=== PATIENT | female | born 1995 | race Caucasian/White ===

== ENCOUNTER 2025-06-24 16:14 | Emergency (ER) | payer OTHER, SELFPAY ==
[2025-06-24 16:23] VITALS: BP 142/84; PULSE 71; RESP 18; TEMP 36.6; O2SAT 99; BMI 22.0
--- NOTE | 2025-06-24 16:29 | ED.GENADULT ---
HPI - General Adult General Chief complaint: Psychiatric Symptoms Stated complaint: [place] Time Seen by Provider: 06/24/25 19:38 Source: patient, RN notes reviewed and old records reviewed Mode of arrival: ambulatory Limitations: no limitations History of Present Illness ED Provider: Angela KATZ narrative: 30 year old female presents for evaluation of depression with suicidal thoughts. The patient reports that she has had depressive thoughts for the last couple of weeks. She reports last these thoughts intensified pain She reports that this has a do with the next boyfriend. She does not have a plan to harm herself but is having some thoughts. This happened 1 time in the past a few years ago and she was seen at [facility]. She ultimately benefit from seeing a therapist. She does not currently have a therapist She is not on any medications for anxiety and depression. She reports that she had previously been on Zoloft but did not feel it would benefit her at all. She has no somatic complaints Related Data Home Medications ?Medication ?Instructions ?Recorded ?Confirmed levonorgestrel-ethinyl estradiol 1 tab PO DAILY 06/24/25 06/24/25 0.1 mg-20 mcg tablet (Vienva) Previous Rx's ?Medication ?Instructions ?Recorded hydroxyzine HCl 25 mg tablet 25 mg PO TID PRN anxiety #20 tabs 06/24/25 Allergies Allergy/AdvReac Type Severity Reaction Status Date / Time No Known Allergies (No Known Allergy Verified 06/24/25 16:24 Allergies*) Review of Systems Constitutional: Constitutional: Denies body ache(s), Denies chills, Denies fever(s) and Denies headache(s) Eyes: Eyes: Denies blurry vision ENT: Denies vertigo, Denies dizziness and Denies headache(s) Cardiovascular: Cardiovascular: Denies chest pain Gastrointestinal: Gastrointestinal: Denies abdominal pain Integumentary/Breasts: Skin/Breast: Denies rash Neurologic: Denies vertigo, Denies dizziness and Denies headache(s) Psychiatric: Psychiatric: Reports anxiety, Reports depression, Denies homicidal ideation and Reports suicidal ideation PMFSH Social History Social History Alcohol intake: current Smoked in Last 30 Days: No Use of substances other than those prescribed or required for medical reasons: No Advance Directives: No Advance Directives Information Provided: No Do you have a plan to hurt others: No Plan Patient : No Physical Exam ED Vital Signs: Vital Signs - 24 hr 06/24/25 16:23 06/24/25 20:07 Temperature 98 F 98 F Pulse Rate 71 71 Respiratory Rate 18 18 Blood Pressure 142/84 H 142/84 H Pulse Oximetry 99 99 Oxygen Delivery Method Room Air Room Air BMI result Body Mass Index 22.0 Const General: healthy appearing, comfortable, no acute distress, alert and awake Nutritional Appearance: well nourished Orientation/consciousness: patient oriented x3 HENMT Head: Yes normocephalic and Yes atraumatic Eyes Eyelids: Yes eyelids normal Conjunctivae: conjunctivae normal Sclerae: sclerae normal Corneas: corneas normal Pupils: Equal, round and reactive pupils present EOM: EOMs intact bilaterally Neck Neck: Yes full ROM Resp Effort & Inspection: normal respiratory effort, able to speak in complete sentences and not labored Cardio Rate: regular rate Rhythm: regular rhythm Skin General skin exam: no rashes or lesions noted and elasticity normal Neuro General: patient oriented x3 Cranial nerves: Yes CN's II-XII intact bilaterally, Yes Equal, round and reactive pupils present and Yes Bilaterally intact EOM present Cognition (Neuro): normal cognition Extrem Other: Moving all extremities well without any obvious deformities Course Course Course Narrative: RME: 30 year female presents to ED for depression and suicidal ideation. Patient has no plan but last attempt to hurt herself for several years ago. Reevaluation(s) Reevaluation #1: The patient is seen with the care team and ultimately cleared for discharge for partial hospitalization. The patient is comfortable with this plan Time: 20:40 Medical Decision Making Medical Decision Making MDM Narrative: 30-year-old female presents for evaluation of depression with suicidal ideation. The patient does not have a plan to harm herself. She denies any somatic complaints, she is quite well appearing. She reports that she is not currently on any medications for anxiety or depression. The patient will be evaluated by the care team and she is currently medically cleared Differential Diagnosis Differential Diagnoses: The differential diagnosis associated with the presentation includes Depression Suicidal ideation Mood disorder Substance abuse Lab Data 06/24/25 16:58 06/24/25 16:58 Labs: Lab Results 06/24/25 06/24/25 Range/Units 16:44 16:58 WBC 6.8 (4.8-10.8) X10*3/uL RBC 3.84 L (4.20-5.50) X10*6/uL Hgb 12.5 (12.0-16.0) g/dl Hct 37.3 (37.0-47.0) % MCV 97.1 (80.0-98.0) fL MCH 32.6 (27.0-33.0) pg MCHC 33.5 (31.0-35.0) g/dl RDW 12.2 (11.0-16.0) % Plt Count 306 (160-400) X10*3/uL MPV 9.5 (9.4-12.3) fL Immature Gran % (Auto) 0.1 (0.0-0.4) % Neut % (Auto) 53.4 (45-73) % Lymph % (Auto) 34.1 (20-40) % [place] % (Auto) 7.8 (2-11) % Eos % (Auto) 4.0 (0-4) % Baso % (Auto) 0.6 (0-2) % Lymph # (Auto) 2.3 (1.2-4.9) X10*3/uL [place] # (Auto) 0.5 (0.1-1.2) X10*3/uL Eos # (Auto) 0.3 (0.0-0.4) X10*3/uL Baso # (Auto) 0.0 (0.0-0.2) X10*3/uL Abs Immat Gran (auto) 0.01 (0.00-0.03) X10*3/uL Absolute Neuts (auto) 3.7 (2.0-8.3) x10*3/uL Absolute Nucleated RBC 0.000 (0.0-0.012) X10*3/uL Nucleated RBC % (auto) 0.0 (0.0-0.2) /100WBC Sodium 142 (135-145) mmol/L Potassium 3.6 (3.3-5.1) mmol/L Chloride 106 (96-108) mmol/L Carbon Dioxide 25 (22-29) mmol/L Anion Gap 15 (12-20) BUN 13 (9-16) mg/dL Creatinine 0.67 (0.5-1.4) mg/dL Estim Creat Clear Calc 123.8 Estimated GFR > 60 Random Glucose 86 (60-115) mg/dL Calcium 9.2 (8.4-10.2) mg/dL Total Bilirubin 0.4 (0.0-1.0) mg/dL AST 23 (5-31) U/L ALT 27 (0-31) U/L Alkaline Phosphatase 49 (39-117) U/L Total Protein 7.2 (6.5-8.0) g/dL Albumin 4.7 (3.5-5.0) g/dL Beta HCG, Quant < 2 mIU/mL Urine Color Yellow Urine Appearance Clear Urine pH 7.0 (5.0-9.0) Ur Specific [place] 1.020 (1.005-1.025) Urine Protein Negative (Neg-Trace) mg/dL Urine Glucose (UA) Negative (Negative) mg/dL Urine Ketones Negative (Negative) mg/dL Urine Blood Moderate (2+) H (Negative) Urine Nitrite Negative (Negative) Ur Leukocyte Esterase Negative (Negative) Urine RBC 6-10 H (0-2) /HPF Urine WBC 0-5 (0-5) /HPF Ur Squamous Epith Cells 0-2 (0-2) /HPF Urine Bacteria None Seen (None Seen) Hyaline Casts 0-2 (0-2) /LPF Urine Opiates Screen Not Detected (Not Detect) Ur Buprenorphine Scrn Not Detected (Not Detect) ng/mL Ur Oxycodone Screen Not Detected (Not Detect) ng/mL Urine Methadone Screen Not Detected (Not Detect) ng/mL Urine Fentanyl Screen Not Detected (Not Detect) Ur Barbiturates Screen Not Detected (Not Detect) Ur Phencyclidine Scrn Not Detected (Not Detect) Ur Amphetamines Screen Not Detected (Not Detect) U Benzodiazepines Scrn Not Detected (Not Detect) Urine Cocaine Screen Not Detected (Not Detect) U Marijuana (THC) Screen Not Detected (Not Detect) Ethyl Alcohol < 10 mg/dL Discharge Plan Discharge Clinical Impression: Depression Patient Disposition: Home, Self-Care Instructions: Depression (ED) Additional Instructions: Your medical workup today was reassuring. You were seen by a care team clinician and we felt it was appropriate for partial hospitalization to treat your anxiety and depression. We should be able to get you established with a therapist You may use hydroxyzine as needed for anxiety. This may make you drowsy, do not drink alcohol or drive after taking it. If you are having worsening thoughts or plan to harm herself return to the emergency department or call 911 immediately You were seen in our Emergency Department today for treatment of a behavioral health issue. It is important after your visit that you follow up with either your behavioral health provider or a primary care doctor within 7 days.? If you have trouble finding a therapist you can reach out to [place] [phone] [facility] [place] [facility] can be reached 7 days a week 24 hours a day.? Call [phone] to speak with someone.? Return for any worsening symptoms or concerns such as thoughts of self harm or harm to others. Please call 911 if you feel your mental health is worsening.? Prescriptions: New hydroxyzine HCl 25 mg tablet 25 mg PO TID PRN (Reason: anxiety) Qty: 20 0RF No Action levonorgestrel-ethinyl estrad [Vienva] 0.1-20 mg-mcg tablet 1 tab PO DAILY Interventions: [place]-Suicide Risk Severity Scale Last Done: 06/24/25 16:46 ED Discharge Assessment Last Done: 06/24/25 20:07 Discharge Date/Time: 06/24/25 20:29 Print Language: Mongolian
--- NOTE | 2025-06-24 16:48 | PC.NURSE ---
Funmi presents to the ED today reporting suicidal ideation secondary to a recent breakup. she reports that she has been having increasing depression and anxiety and the anxiety was so severe this am that she passed out. She denies headstrike when passing out. Pt is calm and cooperative at this time, help seeking. Denies being on any psychiatric medications. Pt reports she has been trying to get in to see a therapist but has not been successful thus far
[2025-06-24 17:06] LABS: Appearance Urine Clear; Glucose Urine UA Negative (Negative); PH 7.0 (5.0-9.0); Specific Gravity - Urine 1.020 (1.005-1.025); UMIC TRIGGER UACC YES
[2025-06-24 17:07] LABS: MANUAL DIFF FLAG NO
[2025-06-24 17:13] LABS: Hematocrit 37.3 % (37.0-47.0); Hemoglobin 12.5 g/dl (12.0-16.0); Imm Gran Abs Auto 0.01 X10*3/uL (0.00-0.03); Imm Gran Pct Auto 0.1 % (0.0-0.4); Lymphocytes Absolute Auto 2.3 X10*3/uL (1.2-4.9); Mean Corpuscular HGB Conc 33.5 g/dl (31.0-35.0); Mean Corpuscular Hemoglobin 32.6 pg (27.0-33.0); Mean Corpuscular Volume 97.1 fL (80.0-98.0); NRBC Abs Auto 0.000 X10*3/uL (0.0-0.012); NRBC Pct Auto 0.0 /100WBC (0.0-0.2); Platelet Count 306 X10*3/uL (160-400); Red Blood Count 3.84 X10*6/uL (4.20-5.50); White Blood Count 6.8 X10*3/uL (4.8-10.8)
[2025-06-24 17:16] LABS: Cannabinoid Screen Urine Not Detected (Not Detect)
[2025-06-24 17:45] LABS: Alanine Aminotransferase 27 U/L (0-31); Albumin Level 4.7 g/dL (3.5-5.0); Alkaline Phosphatase 49 U/L (39-117); Anion Gap 15 (12-20); Aspartate Amino Transferase 23 U/L (5-31); Blood Urea Nitrogen 13 mg/dL (9-16); Calcium 9.2 mg/dL (8.4-10.2); Carbon Dioxide 25 mmol/L (22-29); Chloride 106 mmol/L (96-108); Creatinine Clr Calc Pharmacy 123.8; Estimated Glomerular Filt Rate > 60; Potassium 3.6 mmol/L (3.3-5.1); Sodium 142 mmol/L (135-145); Total Protein 7.2 g/dL (6.5-8.0)
--- OUTSIDE RECORDS SUMMARY | 2025-06-24 19:03 | XMS_ITS | Encounter Summary ---
Author Organization [facility] Address [address] [place] [address] Care Team Providers Care Director Pharmacovigilance Name Role Phone Bev Tang MD Primary Care Provider Encounter Details Date Type Department Care Team ([facility] Contact Info) Description 04/26/2025 Results Follow-Up Adult Medicine - [place] [address] [place] [address] Shukri Prieto, [address] [place] [address] Social History Tobacco Use Types Packs/Day Years Used Date Smoking Tobacco: Never Smokeless Tobacco: Never Alcohol Use Standard Drinks/Week Comments Yes 0 (1 standard drink = 0.6 oz pur e alcohol) Housing Instability Answer Date Recorde d Are you worried that in the next 2 months you may not have stable housing? No 04/29/2025 Food Access & Nutrition Answer Date Rec orded Do you have access to a vari ety of food including fruits and vegetables? Yes 04/29/2025 Access to Healthcare Answer Date Record ed Within the last 3 months, ho w many times did you visit the emergency department for your medical care? 0 04/29/2025 Health Literacy Answer Date Recorded How often do you need to hav e someone help you when you read instructions, pamphlets, or other written material from your doctor or pharmacy? Never 04/29/2025 Caregiver: How often do you need to have someone help you when you read instructions, pamphlets, or other written material from your doctor or pharmacy? Not on file 04/29/2025 Financial Risk Answer Date Recorded How hard is it for you to pa y for the very basics like food, housing, medical care, and air conditioning / heating? Not very hard 04/29/2025 Transportation Answer Date Recorded Has the lack of transportati on kept you from meetings, work, or from getting things needed for daily living? No Has the lack of transportati on kept you from medical appointments or from getting medications? No 04/29/2025 Social Isolation Answer Date Recorded How often do you feel lonely or isolated from th ose around you? Rarely 04/29/2025 Food Risk Answer Date Recorded Within the past 12 months we worried whether our food would run out before we got money to buy more. Never true 04/29/2025 Within the past 12 months th e food we bought just didn't last and we didn't have money to get more. Never true 04/29/2025 Dependent Care Answer Date Recorded Do you need help finding or paying for care for your loved ones. For example, child care director or elderly care for an older adult? No 04/29/2025 Education Answer Date Recorded Do you think completing more education or training, like finishing a GED, going to college, or learning a trade, would be helpful for you? Yes 04/29/2025 Employment and Income Answer Date Recor ded During the last four weeks, have you been actively looking for work? No 04/29/2025 Living Situation Answer Date Recorded What is your living situation? Unrecognized valu e 04/29/2025 Comments Unknown Sex and Gender Information Value Date Recorded Sex Assigned at Not on file Legal Sex Female 10:29 AM EDT Gender Identity Not on file Sexual Orientation Not on file documented as of this encounter Plan of Treatment Not on file documented as of this encounter Visit Diagnoses Not on filedocumented in this encounter Care Teams Director Pharmacovigilance Relationship Specialty Start Date End Date Bev Tang MD [address] [place] [id number] PCP - General Internal Medicine 12/06/24 documented as of this encounter
--- OUTSIDE RECORDS SUMMARY | 2025-06-24 19:03 | XMS_ITS ---
Author Name [facility] Organization Unknown Care Team Organization Name Specialty Phone Email Start Date End Da te [facility] Termed, PROVIDER Primary Care 05/11/202202/01
--- OUTSIDE RECORDS SUMMARY | 2025-06-24 19:03 | XMS_ITS | Encounter Summary ---
Author Organization [facility] Address [address] [place] [address] Care Team Providers [employer] Division Chair Name Role Phone Bev Tang MD Primary Care Provider Encounter Details Date Type Department Care Team ([facility] Contact Info) Description 05/17/2025 Results Follow-Up Adult [address] [id number] Wily Lima, RN Social History Tobacco Use Types Packs/Day Years [...] care for your loved ones. For example, early childhood education coordinator or elderly care for an older adult? [...] Diagnoses Not on filedocumented in this encounter Additional Health Concerns Assessment Noted Time PHQ-9 Depression Total Score: 6 04/29/20 7:15 AM EDT documented as of this encounter [employer] Division Chair Relationship Specialty Start Date End Date Bev Tang MD [address] [place] [id number] PCP - General Internal Medicine 12/06/24 documented as of this encounter
--- OUTSIDE RECORDS SUMMARY | 2025-06-24 19:03 | XMS_ITS | Clinical Summary ---
Author Organization Patient Business Ser [facility] [place] Address [address] [place] [address] Care Team Providers Care Yacht Master Name Role Phone Bev Tang MD Primary Care Provider Allergies Active Allergy Reactions Criticality Noted Date Comments Other 03/02/2017 Seasonal Pollen Medications albuterol HFA (PROAIR HFA ; PROVENTIL HFA ; VENTOLIN HFA) 90 mcg/actuation inhaler Inhale 2 Puffs into the lungs 4 times daily as needed for Cough or Wheezing. 07/26/2023 Active levonorgestrel-e thinyl estradiol (Vienva) 0.1-20 mg-mcg per tablet Take 1 tablet by mouth 1 (one) time each day. 84 tablet 3 12/06/2024 Active acetaminophen (TYLENOL) 325 mg tablet Take by mouth every 6 (six) hours if needed for mild pain. 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 Found on ultrasound 09/19/2023 Anxiety 05/24/2018 LGSIL on Pap smear of cervix 03/02/2017 Overview (07/25/2024): Colpo- benign 04/2017 - repeat pap 2018 03/15/2018 - PAP collected Asthma 02/27/2014 Overview (07/25/2024): Exercise induced Encounters Date Type Department Care Team Description 05/17/2025 Results Follow-Up Adult [address] [phone] Wily Lima RN 05/15/2025 Results Follow-Up [address] [phone] Shukri Prieto PA 05/13/2025 8:02 AM EST - 05/13/2025 11:59 PM EST Hospital Encounter Radiology Department - [address] [phone] Thyroid nodule Discharge Disposition: Home or Self Care 05/03/2025 Results Follow-Up [address] [phone] Shukri Prieto PA 05/02/2025 3:30 PM EDT - 05/02/2025 11:59 PM EDT Hospital Encounter Ultrasound - [facility] [address] [place] [address] Reagan's disease Discharge Disposition: Home or Self Care 05/01/2025 2:48 PM EDT - 05/01/2025 11:59 PM EDT Hospital Encounter CT Scan - [address] [phone] Pelvic pain; Abdominal pain of multiple sites Discharge Disposition: Home or Self Care 04/29/2025 7:30 AM EDT Office Visit Adult [address] [phone] Shukri Prieto PA Pelvic pain (Primary Dx); Abdominal pain of multiple sites; Reagan's disease; Sciatica of left side 04/26/2025 11:04 AM EDT - 04/26/2025 11:59 PM EDT Hospital Encounter Radiology Department - [address] [phone] Pelvic pain Discharge Disposition: Home or Self Care 04/26/2025 Results Follow-Up Adult [address] [phone] Shukri Prieto PA 04/24/2025 7:40 AM EDT - 04/24/2025 11:59 PM EDT Hospital Encounter Radiology Department - [address] [phone] Abdominal pain of multiple sites; Hx of simple renal cyst Discharge Disposition: Home or Self Care 04/23/2025 Results Follow-Up Adult [address] [phone] Shukri Prieto PA 04/22/2025 7:30 AM EDT Office Visit [address] [phone] Shukri Prieto PA Abdominal pain of multiple sites (Primary Dx); Other fatigue; Dizziness; Reagan's disease; Hx of simple renal cyst; Flu vaccine need 04/15/2025 Telephone Adult [address] [phone] Bev Tang MD from Last 3 Months Immunizations Immunization Administration Dates Next Due DTP 1995,1995,1995 DTaP (Infanrix) 6wks to less than 7yo 11/18/2000 ,10/01/1996 [id number] (Pentacel) 2mo to less than 5yo 11/18/2000,10/01/1996,1995,10/17,1995 HPV, Quadrivalent 02/02/2011,09/11/2010,07/14/19 11 Hepatitis B Pediatric (Enger ix B; Recombivax HB) to less than 20 yo 03/23/1996,1995,1995 Hib (HbOC) 11/18/2000, 7,1995,10/17,1995 IPV Inactivated polio (Ipol) 6wks and older 11/18/2000,1995,1995,08/22 Influenza Quadravalent, MDCK , 0.5ml, preservative free (Flucelvax) 6mo and older 07/26/2023,03/06/2019,05/24/2018 Influenza Quadrivalent, 0.5m l, preservative free (Fluarix; FluLaval; Fluzone) ages 6mo and older (Afluria) 3yo and older 08/19/2021 Influenza trivalent, 0.5mL, preservative free (Fluarix; FluLaval; Fluzone) ages 6mo and older (Afluria) 3 years and older 09/14/2013 Influenza trivalent, MDCK, 0 .5mL, preservative free (Flucelvax) 6mo and older 04/22/2025 Influenza trivalent, with pr eservative (Fluzone; Afluria) 6mo and older 09/14/2013 MMR, measles mumps and rubel la Live (Priorix; M-M-R II) 12mo and older 11/18/2000,06/22/1996 Meningococcal Polysaccharide 08/24/2011,01/14/20 07 Pneumococcal polysaccharide 23 valent (Pneumovax 23) 2yo and older 11/18/2014 Td Tetanus diptheria (Tdvax) 7yo and older 05/24/2018 Tdap Tetanus diptheria acell ular pertussis (Boostrix; Adacel) 7yo and older 01/13/2007 Varicella live (Varivax) 12m o and older 02/02/2008,09/08/1998 Surgical History Surgery Date Site/Laterality Comments WISDOM TOOTH EXTRACTION 2013 PROCEDURE: HISTORICAL WISDOM TEETH EXTRACTION Medical History Medical History Date Comments Asthma 02/27/2014 DX:Asthma Renal cyst, right 09/19/2023 DX:Renal cyst, right; COMMENT: Septated. 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 Family History Medical History Relation Name Comments No Known Problems Brother Hypertension Father Other: hyperlipidemia Father Other: parkinsons Maternal Grandfather di ed 81 Dementia Maternal Grandmother Other: alive and well Mother Other: esophageal cancer Paternal Grandfather 75 Other: stomach cancer Paternal Grandfather Stomach cancer Paternal Grandmother No Known Problems Sister Breast cancer Neg Hx Colon cancer Neg Hx Ovarian cancer Neg Hx Pancreatic cancer Neg Hx Prostate cancer Neg Hx Uterine cancer Neg Hx Relation Name Status Comments Brother Alive Father Alive Maternal Grandfather Maternal Grandmother Mother Alive Paternal Grandfather Paternal Grandmother Sister Alive Social History Tobacco Use Types Packs/Day Years [...] for your loved ones. For example, child nurse or elderly care for an older adult? [...] on file Sexual Orientation Not on file Last Filed Vital Signs Vital Sign Reading Time Taken Comments Blood Pressure 114/70 04/29/2025 7:29 AM EDT Pulse 63 04/29/2025 7:29 AM EDT Temperature 36.4 C (97.6 F) 04/29/2025 7:29 AM EDT Respiratory Rate - - Oxygen Saturation - - Inhaled Oxygen Concentration - - Weight 68 kg (150 lb) 04/29/2025 7:29 AM EDT Height 172.7 cm (5' 8 ) 04/29/2025 7:29 AM EDT Body Mass Index 22.81 04/29/2025 7:29 AM EDT Plan of Treatment Health Maintenance Due Date Last Done Comments Pneumococcal Vaccine: Pediatrics (0 to 5 Years) and At-Risk Patients (6 to 49 Years) (2 of 2 - PCV) 11/19/2015 11/18/2014 COVID-19 Vaccine (3 - season) 2025 08/19/2021, 10/13/2020 Social Influencers of Health Screening 04/29/2026 04/29/2025 DTaP,Tdap,and Td Vaccines (8 - Td or Tdap) 05/24/2028 05/24/2018, 01/13/2007, 11/18/2000, Additional history exists Cervical Cancer Screening: HPV 07/08/2028 07/08/2023 Cholesterol Screening (Lipid Panel) 07/26/2028 07/26/2023 RSV Immunization Adult Patients (1 - 1-dose 75+ series) 2070 Hepatitis B Vaccines Completed 03/23/1996, 1995, 1995 HIB Vaccines Completed 11/18/2000, 11/01, 10/01/1996, Additional history exists IPV Vaccines Completed 11/18/2000, 11/01, 10/01/1996, Additional history exists MMR Vaccines Completed 11/18/2000, 06/22/1996 Varicella Vaccines Completed 02/02/2008, 09/08/1998 HPV Vaccines Completed 02/02/2011, 09/01, 07/14/2010 Meningococcal ACWY Vaccine Aged Out 08/24/2011, No longer eligible based on patient's age to complete this topic HIV Screening Completed 12/06/2024, 12/09/2014 Hepatitis C Screening Completed 12/06/2024 Influenza Vaccine Completed 04/22/2025, , 08/19/2021, Additional history exists Depression Screening Completed 04/29/2025 Hepatitis A Vaccines Aged Out No long er eligible based on patient's age to complete this topic Meningococcal B Vaccine Aged Out No l onger eligible based on patient's age to complete this topic RSV Immunization Patients Under 20 months Aged Out No longer eligible based on patient's age to complete this topic Procedures Procedure Name Priority Date/Time Associated Diagnosis Comments US GUIDED FINE NDL ASP 1ST LESION Routine 05/13/2025 8:37 AM EST Thyroid nodule FINE NEEDLE ASPIRATION Routine 8:37 AM EST Thyroid nodule US HEAD NECK SOFT TISSUE Routine 05/02/2025 3:51 PM EDT Reagan's disease CT ABDOMEN PELVIS WO CONTRAST Routine 05/01/2025 2:57 PM EDT Pelvic pain Abdominal pain of multiple sites ECG 12-LEAD Routine 04/30/2025 10:04 AM EDT US DUPLEX ABDOMEN/PELVIS/RETRO COMPLETE STAT 04/26/2025 11:28 AM EDT Pelvic pain US PELVIS NON OB COMPLETE W TRANSVAGINAL STAT 04/26/2025 11:28 AM EDT Pelvic pain US ABDOMEN COMPLETE Routine 04/24/2025 8 :05 AM EDT Abdominal pain of multiple sites Hx of simple renal cyst CBC WITH AUTO DIFFERENTIAL Routine 04/22/2025 8:37 AM EDT Other fatigue COMPREHENSIVE METABOLIC PANEL Routine 04/22/2025 8:37 AM EDT Other fatigue THYROID PEROXIDASE AND THYROGLOBULIN ANTIBODIES Routine 04/22/2025 8:37 AM EDT Other fatigue Reagan's disease VITAMIN D 25 HYDROXY Routine 04/22/2025 8:37 AM EDT Other fatigue FERRITIN Routine 04/22/2025 8:37 AM EDT Other fatigue THYROID STIMULATING HORMONE WITH REFLEX TO FREE T4 AND FREE T3 Routine 04/22/2025 8:37 AM EDT Other fatigue Reagan's disease CBC AND DIFFERENTIAL Routine 04/22/2025 8:37 AM EDT Other fatigue EXTERNAL CLINICAL LAB 04/16/2025 HEPATITIS C ANTIBODY Routine 12/06/2024 2:30 PM EDT Encounter for screening for viral disease HIV 1, 2 ANTIBODY, P24 ANTIGEN WITH REFLEX TO DIFFERENTIATION Routine 12/06/2024 2:30 PM EDT Encounter for screening for viral disease LIPID PANEL Routine 07/26/2023 HM HPV Routine 07/08/2023 from Last 3 Months or Most Recently Relevant to Health Maintenance Results * US Guided Fine Ndl Asp 1st Lesion (05/13/2025 8:37 AM EST) Anatomical Region Laterality Modality Ultrasound 05/13/2025 8:44 AM EST Addenda Addendum by Anuja Yang MD on 05/17/2025 11:07 AM EST Addendum: Final Diagnosis Thyroid, left isthmus, fine needle aspiration (ThinPrep, direct smears): Benign ([place] Category II) Consistent with follicular nodular disease (includes adenomatoid nodule, colloid nodule, etc.) -------- ADDENDUM -------- Dictated By: Anuja Yang Dictated Date: 05/17/2025 11:06 ET Assigned Physician: Anuja Yang Reviewed and Electronically Signed By: Anuja Yang Signed Date: 05/17/2025 11:07 ET Workstation ID: [id number] Transcribed By: Self Edit Transcribed Date: 05/17/2025 11:06 ET Impressions 05/13/2025 8:46 AM EST Seemingly successful ultrasound-guided fine-needle aspiration of a left isthmus thyroid nodule. Pathologic analysis is pending. POS - [id number] -------- FINAL REPORT -------- Dictated By: Anuja Yang Dictated Date: 05/13/2025 08:44 ET Assigned Physician: Anuja Yang Reviewed and Electronically Signed By: Anuja Yang Signed Date: 05/13/2025 08:46 ET Workstation ID: [id number] Transcribed By: Self Edit Transcribed Date: 05/13/2025 08:44 ET Narrative 05/13/2025 8:46 AM EST EXAM: Ultrasound-guided fine-needle aspiration of a thyroid nodule. FINDINGS: Patient presents for ultrasound-guided fine-needle aspiration of a 1.7 x 1.2 x 0.6 cm nodule in the left isthmus. Prior imaging from 05/02/2025 was reviewed. Risks and benefits of the procedure including specific risks of hemorrhage and infection were discussed with the patient before beginning the procedure. Written and verbal consent to proceed were given. The overlying skin was prepped with betadine and anesthetized with 1% buffered lidocaine. Using ultrasound guidance, 3 passes were made into the nodule using 25-gauge spinal needles. ThinPrep slides were prepared. No immediate complications. No postprocedural hematoma. Procedure Note Anuja Yang MD - 05/13/2025 EXAM: Ultrasound-guided fine-needle aspiration of a thyroid nodule. FINDINGS: Patient presents for ultrasound-guided fine-needle aspiration of a 1.7 x1.2 x 0.6 cm nodule in the left isthmus. Prior imaging from 05/02/2025was reviewed. Risks and benefits of the procedure including specificrisks of hemorrhage and infection were discussed with the patient beforebeginning the procedure. Written and verbal consent to proceed weregiven. The overlying skin was prepped with betadine and anesthetized with 1%buffered lidocaine. Using ultrasound guidance, 3 passes were made into thenodule using 25-gauge spinal needles. ThinPrep slides were prepared. Noimmediate complications. No postprocedural hematoma. IMPRESSION: Seemingly successful ultrasound-guided fine-needle aspiration of a leftisthmus thyroid nodule. Pathologic analysis is pending. POS - [id number] -------- FINAL REPORT -------- Dictated By: Anuja Yang Dictated Date: 05/13/2025 08:44 ET Assigned Physician: Anuja Yang Reviewed and Electronically Signed By: Anuja Yang Signed Date: 05/13/2025 08:46 ET Workstation ID: [id number] Transcribed By: Self Edit Transcribed Date: 05/13/2025 08:44 ET us Shukri NELSON IMG US PROCEDURES Edited Resu lt - Final * Fine needle aspiration (05/13/2025 8:37 AM EST) Final Diagnosis Thyroid, left isthmus, fine needle aspiration (ThinPrep, direct smears): Benign ([place] Category II) Consistent with follicular nodular disease (includes adenomatoid nodule, colloid nodule, etc.) 05/15/2025 9:10 AM EST [facility] at 0910 EST Specimen A Adequacy Satisfactory for evaluation 05/15/2025 9:10 AM EST [facility] Gross Description A. Thyroid, lt thyroid isthmus: Received in Cytolyt is 30 ml of clear fluid. One ThinPrep, three alcohol fixed smear, and three air dried smear are made. rp 05/15/2025 9:[address] [facility] Disclaimer Unless otherwise specified, all tissue is 10% NB formalin fixed and paraffin embedded. Technical cytopathology services provided by [facility], at [address] [place] [address] ([facility] # [id number]/Floridalma Phillips MD, Application Trainer.) 05/15/2025 9:10 AM EST [facility] Fine Needle Aspirate Thyroid structure / Unknown 05/13/2025 8:37 AM EST 05/14/2025 9:00 AM EST us Anuja Yang MD LAB PATHOLOGY ORDERABLES Final R esult [facility] [address] [place] [address], [place] [phone] * US Head Neck Soft Tissue (05/02/2025 3:51 PM EDT) Anatomical Region Laterality Modality Head and Neck Ultrasound 05/02/2025 4:14 PM EDT Impressions 05/02/2025 4:20 PM EDT 1. Heterogeneous thyroid gland with increased vascularity. 2. Left isthmus nodule new from prior, consider FNA if clinically indicated. -------- FINAL REPORT -------- Dictated By: Diomedes Mendez Dictated Date: 05/02/2025 16:14 ET Assigned Physician: Diomedes Mendez Reviewed and Electronically Signed By: Diomedes Mendez Signed Date: 05/02/2025 16:20 ET Workstation ID: [id number] Transcribed By: Self Edit Transcribed Date: 05/02/2025 16:14 ET Narrative 05/02/2025 4:20 PM EDT Exam: Thyroid ultrasound. HISTORY: Reagan thyroiditis COMPARISON: Ultrasound thyroid from 10/19/2023 Technique: Grayscale and Doppler images of the thyroid gland were obtained. FINDINGS: The thyroid gland is normal in size. The right lobe measures 5.4 x 1.7 x 2.1 cm. The left lobe measures 5.7 x 1.4 x 2.0 cm. The thyroid isthmus is prominent in size and measures 0.6 cm. The thyroid parenchyma is heterogenous. Increased vascularity is present. Left isthmus: Hypoechoic ovoid solid nodule measures 1.7 x 0.6 x 1.2 cm with increased vascularity Procedure Note Diomedes Mendez MD - 05/02/2025 Exam: Thyroid ultrasound. HISTORY: Reagan thyroiditis COMPARISON: Ultrasound thyroid from 10/19/2023 Technique: Grayscale and Doppler images of the thyroid gland wereobtained. FINDINGS: The thyroid gland is normal in size. The right lobe measures 5.4 x 1.7 x2.1 cm. The left lobe measures 5.7 x 1.4 x 2.0 cm. The thyroid isthmus isprominent in size and measures 0.6 cm. The thyroid parenchyma isheterogenous. Increased vascularity is present. Left isthmus: Hypoechoic ovoid solid nodule measures 1.7 x 0.6 x 1.2 cm with increasedvascularity IMPRESSION: 1. Heterogeneous thyroid gland with increased vascularity. 2. Left isthmus nodule new from prior, consider FNA if clinicallyindicated. -------- FINAL REPORT -------- Dictated By: Diomedes Mendez Dictated Date: 05/02/2025 16:14 ET Assigned Physician: Diomedes Mendez Reviewed and Electronically Signed By: Diomedes Mendez Signed Date: 05/02/2025 16:20 ET Workstation ID: [id number] Transcribed By: Self Edit Transcribed Date: 05/02/2025 16:14 ET us Shukri NELSON IMG US PROCEDURES Final Resul t * CT Abdomen Pelvis wo Contrast (05/01/2025 2:57 PM EDT) Anatomical Region Laterality Modality Body Computed Tomogra phy 05/01/2025 5:37 PM EDT Impressions 05/02/2025 4:37 PM EDT 1. No acute intra-abdominal or pelvic pathology. 2. Possible medullary nephrocalcinosis although this is not evident on prior ultrasound. -------- FINAL REPORT -------- Dictated By: Diomedes Mendez Dictated Date: 05/01/2025 17:37 ET Assigned Physician: Diomedes Mendez Reviewed and Electronically Signed By: Diomedes Mendez Signed Date: 05/02/2025 16:37 ET Workstation ID: [id number] Transcribed By: Self Edit Transcribed Date: 05/01/2025 17:38 ET Narrative 05/02/2025 4:[address] ABDOMEN AND PELVIS WITHOUT INTRAVENOUS CONTRAST HISTORY: Abdominal pain, acute, no prior medical history. TECHNIQUE: Multiple contiguous axial images of the abdomen and pelvis were obtained without intravenous contrast. Images were reformatted to coronal and sagittal planes. Radiation dose is 10.46mGy COMPARISON: Ultrasound complete abdomen from 04/24/2025 FINDINGS: Lungs: The lung bases are clear. Mediastinum: The cardiac apex is normal in size, no pericardial effusion. Upper GI: The liver, gallbladder, pancreas, and spleen are within normal limits. : The right adrenal gland is within normal limits. Faint calcifications within the left adrenal gland. The kidneys are without hydronephrosis. Possible medullary nephrocalcinosis. Bladder is well-distended. Uterus is retroverted. Lower GI: The bowel is without obstruction or inflammation and there is no free fluid or free air within the peritoneal cavity. The terminal ileum and appendix are unremarkable. Multiple subcentimeter lymph nodes throughout the abdomen and pelvis. Vascular: The arteriovascular structures are within normal limits. MSK: Soft tissues are normal. The osseous structures are intact. Procedure Note Diomedes Mendez MD - 05/02/2025 CT ABDOMEN AND PELVIS WITHOUT INTRAVENOUS CONTRAST HISTORY: Abdominal pain, acute, no prior medical history. TECHNIQUE: Multiple contiguous axial images of the abdomen and pelviswere obtained without intravenous contrast. Images were reformatted tocoronal and sagittal planes. Radiation dose is 10.46mGy COMPARISON: Ultrasound complete abdomen from 04/24/2025 FINDINGS: Lungs: The lung bases are clear. Mediastinum: The cardiac apex is normal in size, no pericardial effusion. Upper GI: The liver, gallbladder, pancreas, and spleen are within normal limits. : The right adrenal gland is within normal limits. Faint calcificationswithin the left adrenal gland. The kidneys are without hydronephrosis.Possible medullary nephrocalcinosis. Bladder is well-distended. Uterus isretroverted. Lower GI: The bowel is without obstruction or inflammation and there is no freefluid or free air within the peritoneal cavity. The terminal ileum andappendix are unremarkable. Multiple subcentimeter lymph nodes throughoutthe abdomen and pelvis. Vascular: The arteriovascular structures are within normal limits. MSK: Soft tissues are normal. The osseous structures are intact. IMPRESSION: 1. No acute intra-abdominal or pelvic pathology. 2. Possible medullary nephrocalcinosis although this is not evident onprior ultrasound. -------- FINAL REPORT -------- Dictated By: Diomedes Mendez Dictated Date: 05/01/2025 17:37 ET Assigned Physician: Diomedes Mendez Reviewed and Electronically Signed By: Diomedes Mendez Signed Date: 05/02/2025 16:37 ET Workstation ID: [id number] Transcribed By: Self Edit Transcribed Date: 05/01/2025 17:38 ET us Shukri NELSON IMG CT PROCEDURES Final Resul t * ECG 12 lead (04/30/2025 10:04 AM EDT) us Historical Provider ECG ORDERABLES Final Res ult * US Pelvis Non OB Complete w Transvaginal (04/26/2025 11:28 AM EDT) Anatomical Region Laterality Modality Body, Pelvis Ultrasound 04/26/2025 11:3 1 AM EDT Narrative 04/26/2025 11:33 AM EDT Pelvic ultrasound. History pelvic pain. Comparison with prior examination from [facility] 08/27/2020. Examination was performed transabdominally and transvaginally. Color Doppler ultrasound and duplex analysis of the adnexal vasculature was performed. Uterus is retroverted measuring 7.9 x 4.2 x 4.9 cm. No focal myometrial abnormalities were identified. Endometrium measures 4 mm. There is no free fluid in the cul-de-sac. Both ovaries were visualized was normal size and echogenicity. Right ovarian volume is 6.4 cc. Left ovarian volume is 5.5 cc. Normal arterial and venous flow was documented in the ovaries. CONCLUSIONS: Unremarkable pelvic ultrasound. -------- FINAL REPORT -------- Dictated By: Merlene Morris Dictated Date: 04/26/2025 11:31 ET Assigned Physician: Merlene Morris Reviewed and Electronically Signed By: Merlene Morris Signed Date: 04/26/2025 11:33 ET Workstation ID: [id number] Transcribed By: Self Edit Transcribed Date: 04/26/2025 11:31 ET Procedure Note Merlene Morris MD - 04/26/2025 Pelvic ultrasound. History pelvic pain. Comparison with prior examination from [facility] 08/27/2020. Examination was performed transabdominally and transvaginally. ColorDoppler ultrasound and duplex analysis of the adnexal vasculature wasperformed. Uterus is retroverted measuring 7.9 x 4.2 x 4.9 cm. No focal myometrialabnormalities were identified. Endometrium measures 4 mm. There is no freefluid in the cul-de-sac. Both ovaries were visualized was normal size and echogenicity. Rightovarian volume is 6.4 cc. Left ovarian volume is 5.5 cc. Normal arterialand venous flow was documented in the ovaries. CONCLUSIONS: Unremarkable pelvic ultrasound. -------- FINAL REPORT -------- Dictated By: Merlene Morris Dictated Date: 04/26/2025 11:31 ET Assigned Physician: Merlene Morris Reviewed and Electronically Signed By: Merlene Morris Signed Date: 04/26/2025 11:33 ET Workstation ID: [id number] Transcribed By: Self Edit Transcribed Date: 04/26/2025 11:31 ET us Shukri NELSON IMG US PROCEDURES Final Resul t * US Duplex Abdomen/Pelvis/Retro Complete (04/26/2025 11:28 AM EDT) Anatomical Region Laterality Modality Body Ultrasound 04/26/2025 11:3 1 AM EDT Narrative 04/26/2025 11:33 AM EDT Pelvic ultrasound. History pelvic pain. Comparison with prior examination from [facility] 08/27/2020. Examination was performed transabdominally and transvaginally. Color Doppler ultrasound and duplex analysis of the adnexal vasculature was performed. Uterus is retroverted measuring 7.9 x 4.2 x 4.9 cm. No focal myometrial abnormalities were identified. Endometrium measures 4 mm. There is no free fluid in the cul-de-sac. Both ovaries were visualized was normal size and echogenicity. Right ovarian volume is 6.4 cc. Left ovarian volume is 5.5 cc. Normal arterial and venous flow was documented in the ovaries. CONCLUSIONS: Unremarkable pelvic ultrasound. -------- FINAL REPORT -------- Dictated By: Merlene Morris Dictated Date: 04/26/2025 11:31 ET Assigned Physician: Merlene Morris Reviewed and Electronically Signed By: Merlene Morris Signed Date: 04/26/2025 11:33 ET Workstation ID: [id number] Transcribed By: Self Edit Transcribed Date: 04/26/2025 11:31 ET Procedure Note Merlene Morris MD - 04/26/2025 Pelvic ultrasound. History pelvic pain. Comparison with prior examination from [facility] 08/27/2020. Examination was performed transabdominally and transvaginally. ColorDoppler ultrasound and duplex analysis of the adnexal vasculature wasperformed. Uterus is retroverted measuring 7.9 x 4.2 x 4.9 cm. No focal myometrialabnormalities were identified. Endometrium measures 4 mm. There is no freefluid in the cul-de-sac. Both ovaries were visualized was normal size and echogenicity. Rightovarian volume is 6.4 cc. Left ovarian volume is 5.5 cc. Normal arterialand venous flow was documented in the ovaries. CONCLUSIONS: Unremarkable pelvic ultrasound. -------- FINAL REPORT -------- Dictated By: Merlene Morris Dictated Date: 04/26/2025 11:31 ET Assigned Physician: Merlene Morris Reviewed and Electronically Signed By: Merlene Morris Signed Date: 04/26/2025 11:33 ET Workstation ID: [id number] Transcribed By: Self Edit Transcribed Date: 04/26/2025 11:31 ET us Shukri NELSON IMKathleen US PROCEDURES Final Resul t * US Abdomen Complete (04/24/2025 8:05 AM EDT) Anatomical Region Laterality Modality Body Ultrasound 04/24/2025 11:3 6 AM EDT Impressions 04/24/2025 11:43 AM EDT No clear source of pain identified. No sonographic abnormality in the region of the palpable left upper quadrant lump. -------- FINAL REPORT -------- Dictated By: Anuja Yang Dictated Date: 04/24/2025 11:36 ET Assigned Physician: Anuja Yang Reviewed and Electronically Signed By: Anuja Yang Signed Date: 04/24/2025 11:43 ET Workstation ID: [id number] Transcribed By: Self Edit Transcribed Date: 04/24/2025 11:36 ET Narrative 04/24/2025 11:43 AM EDT EXAM: Abdominal ultrasound HISTORY: Abdominal pain. Palpable abdominal lump. COMPARISON: Retroperitoneal ultrasound 09/16/2023 FINDINGS: Liver: Normal in size measuring 13.2 cm in craniocaudad extent. Parenchymal echotexture appears within normal limits without lesions detected. Gallbladder/Biliary Tree: Gallbladder lumen appears clear without wall thickening or pericholecystic fluid. No intra or extrahepatic biliary ductal dilatation. The common bile duct measures 0.2 cm. Pancreas: No abnormality detected in the visualized pancreas, the tail is partially obscured by bowel gas. Spleen: Normal in size measuring 8.3 cm. No focal abnormality. Kidneys: Normal in size with the right measuring 10.0 cm and the left measuring 11.1 cm in craniocaudad extent. No hydronephrosis or shadowing stones. 0.8 x 0.8 x 0.5 cm cyst with thin septation in the right mid kidney which has minimally decreased in size in one plane. No left renal lesion. Vasculature: No abdominal aortic aneurysm. Hepatopedal flow in the main portal vein. IVC is unremarkable. Palpable lump: Patient delineated the palpable left upper quadrant lump without a sonographic abnormality identified. Procedure Note Anuja Yang MD - 04/24/2025 EXAM: Abdominal ultrasound HISTORY: Abdominal pain. Palpable abdominal lump. COMPARISON: Retroperitoneal ultrasound 09/16/2023 FINDINGS: Liver: Normal in size measuring 13.2 cm in craniocaudad extent.Parenchymal echotexture appears within normal limits without lesionsdetected. Gallbladder/Biliary Tree: Gallbladder lumen appears clear without wallthickening or pericholecystic fluid. No intra or extrahepatic biliaryductal dilatation. The common bile duct measures 0.2 cm. Pancreas: No abnormality detected in the visualized pancreas, the tail ispartially obscured by bowel gas. Spleen: Normal in size measuring 8.3 cm. No focal abnormality. Kidneys: Normal in size with the right measuring 10.0 cm and the leftmeasuring 11.1 cm in craniocaudad extent. No hydronephrosis or shadowingstones. 0.8 x 0.8 x 0.5 cm cyst with thin septation in the right midkidney which has minimally decreased in size in one plane. No left renallesion. Vasculature: No abdominal aortic aneurysm. Hepatopedal flow in the mainportal vein. IVC is unremarkable. Palpable lump: Patient delineated the palpable left upper quadrant lumpwithout a sonographic abnormality identified. IMPRESSION: No clear source of pain identified. No sonographic abnormality in theregion of the palpable left upper quadrant lump. -------- FINAL REPORT -------- Dictated By: Anuja Yang Dictated Date: 04/24/2025 11:36 ET Assigned Physician: Anuja Yang Reviewed and Electronically Signed By: Anuja Yang Signed Date: 04/24/2025 11:43 ET Workstation ID: [id number] Transcribed By: Self Edit Transcribed Date: 04/24/2025 11:36 ET us Shukri NELSON IMG US PROCEDURES Final Resul t * Thyroid stimulating hormone with reflex to free t4 and free t3 (04/22/2025 8:37 AM EDT) TSH 1.92 0.40 - 4.00 mcIU/mL LAB CHEMISTRY METHOD 04/22/2025 9:31 PM EDT [facility] Blood Venous blood specimen / Unknown Venipuncture / Unknown 04/22/2025 8:37 AM EDT 04/22/2025 8:37 AM EDT Shukri NELSON LAB BLOOD ORDERABLES Final Re sult Performing Organization Address City/[facility]/ZIP Co de Phone Number [facility] [address] [place] [address], [place] [phone] * (ABNORMAL) Thyroid peroxidase and thyroglobulin antibodies (04/22/2025 8:37 AM EDT) Antithyroglobulin Ab 313.0(H) <=60.0 I Unit/mL LAB CHEMISTRY METHOD 04/22/2025 2:11 PM EDT [facility] Thyroid Peroxidase Ab 1,957.0( H) <=60.0 I Unit/mL LAB CHEMISTRY METHOD 04/22/2025 2:11 PM EDT [facility] Blood Venous blood specimen / Unknown Venipuncture / Unknown 04/22/2025 8:37 AM EDT 04/22/2025 8:37 AM EDT Shukri NELSON LAB BLOOD ORDERABLES Final Re sult Performing Organization Address City/[facility]/ZIP Co de Phone Number [facility] [address] [place] [address], [place] [phone] * CBC auto differential (04/22/2025 8:37 AM EDT) WBC 6.3 4.8 - 10.8 K/mcL LAB HEMETOLOGY METHOD 04/22/2025 1:02 PM EDT [facility] RBC 3.90 3.80 - 4.80 M/mcL LAB HEMETOLOGY METHOD 04/22/2025 1:02 PM EDT [facility] Hemoglobin 12.3 11.5 - 16.0 g/dL LAB HEMETOLOGY METHOD 04/22/2025 1:02 PM [facility] Hematocrit 37.6 35.0 - 47.0 % LAB HEMETOLOGY METHOD 04/22/2025 1:02 PM [facility] MCV 97.2 79.0 - 98.0 FL LAB HEMETOLOGY METHOD 04/22/2025 1:02 PM [facility] MCH 31.8 27.0 - 32.0 pcg LAB HEMETOLOGY METHOD 04/22/2025 1:02 PM [facility] MCHC 32.7 32.0 - 37.0 g/dL LAB HEMETOLOGY METHOD 04/22/2025 1:02 PM [facility] RDW 12.6 11.0 - 15.0 % LAB HEMETOLOGY METHOD 04/22/2025 1:02 [facility] Platelets 294 130 - 400 K/mcL LAB HEMETOLOGY METHOD 04/22/2025 1:02 [facility] MPV 10.1 7.0 - 11.0 FL LAB HEMETOLOGY METHOD 04/22/2025 1:02 [facility] NRBC 0.0 <1.0 % LAB HEMETOLOGY METHOD 04/22/2025 1:02 [facility] NRBC Absolute 0.00 <0.10 K/mcL LAB HEMETOLOGY METHOD 04/22/2025 1:02 [facility] Neutrophils Relative 57.7 % LAB HEMETOLOGY METHOD 04/22/2025 1:02 PM [facility] Lymphocytes Relative 28.3 % LAB HEMETOLOGY METHOD 04/22/2025 1:02 [facility] Monocytes Relative 7.2 % LAB HEMETOLOGY METHOD 04/22/2025 1:02 PM [facility] Eosinophils Relative 5.4 % LAB HEMETOLOGY METHOD 04/22/2025 1:02 PM EDT [facility] Basophils Relative 1.1 % LAB HEMETOLOGY METHOD 04/22/2025 1:02 PM EDT [facility] Immature Granulocytes Relative 0.3 % LAB HEMETOLOGY METHOD 04/22/2025 1:02 PM EDT [facility] Neutrophils Absolute 3.60 1.50 - 7.00 K/mcL LAB HEMETOLOGY METHOD 04/22/2025 1:02 PM EDT [facility] Lymphocytes Absolute 1.77 1.00 - 5.00 K/mcL LAB HEMETOLOGY METHOD 04/22/2025 1:02 PM EDT [facility] Monocytes Absolute 0.45 0.20 - 1.00 K/mcL LAB HEMETOLOGY METHOD 04/22/2025 1:02 PM EDT [facility] Eosinophils Absolute 0.34 0.00 - 0.50 K/mcL LAB HEMETOLOGY METHOD 04/22/2025 1:02 PM EDT [facility] Basophils Absolute 0.07 0.00 - 0.20 K/mcL LAB HEMETOLOGY METHOD 04/22/2025 1:02 PM EDT [facility] Immature Granulocytes Absolute 0.02 0.00 - 0.03 K/mcL LAB HEMETOLOGY METHOD 04/22/2025 1:02 PM EDT [facility] Blood Venous blood specimen / Unknown Venipuncture / Unknown 04/22/2025 8:37 AM EDT 04/22/2025 8:37 AM EDT us Shukri NELSON LAB BLOOD ORDERABLES Final Re sult [facility] [address] [place] [address], * (ABNORMAL) Vitamin D 25 hydroxy (04/22/2025 8:37 AM EDT) Vit D, 25-Hydroxy 27.2(L) 30.0 - 80.0 ng/mL LAB CHEMISTRY METHOD 04/22/2025 1:44 PM EDT [facility] Blood Venous blood specimen / Unknown Venipuncture / Unknown 04/22/2025 8:37 AM EDT 04/22/2025 8:37 AM EDT Shukri NELSON LAB BLOOD ORDERABLES Final Re sult Performing Organization Address City/[facility]/ZIP Co de Phone Number [facility] [address] [place] [address], [place] [phone] * Ferritin (04/22/2025 8:37 AM EDT) Pathologist [facility] Ferritin 25 8 - 252 ng/mL LAB CHEMISTRY METHOD 04/22/2025 12:59 PM EDT [facility] Blood Venous blood specimen / Unknown Venipuncture / Unknown 04/22/2025 8:37 AM EDT 04/22/2025 8:37 AM EDT Shukri NELSON LAB BLOOD ORDERABLES Final Re sult Performing Organization Address City/[facility]/ZIP Co de Phone Number [facility] [address] [place] [address], [place] [phone] * Comprehensive metabolic panel (04/22/2025 8:37 AM EDT) Pathologist [facility] Sodium 139 133 - 145 mmol/L LAB CHEMISTRY METHOD 04/22/2025 12:59 PM EDT [facility] Potassium 4.2 3.5 - 5.5 mmol/L LAB CHEMISTRY METHOD 04/22/2025 12:59 PM EDT [facility] Chloride 106 96 - 110 mmol/L LAB CHEMISTRY METHOD 04/22/2025 12:59 PM [facility] CO2 25 21 - 32 mmol/L LAB CHEMISTRY METHOD 04/22/2025 12:59 PM [facility] Anion Gap 8 3 - 11 LAB CHEMISTRY METHOD 04/22/2025 12:59 PM [facility] Glucose 88 70 - 100 mg/dL LAB CHEMISTRY METHOD 04/22/2025 12:59 PM [facility] BUN 14 5 - 25 mg/dL LAB CHEMISTRY METHOD 04/22/2025 12:59 PM [facility] Creatinine 0.73 0.50 - 1.10 mg/dL LAB CHEMISTRY METHOD 04/22/2025 12:59 PM [facility] eGFR 114 >=60 mL/min/1. 73m2 LAB CHEMISTRY METHOD 04/22/2025 12:59 PM [facility] Comment:Calculation based on the Chronic Kidney Disease Epidemiology Collaboration (CKD-EPI) equation refit without adjustment for race. BUN/Creatinine Ratio 19.2 LAB CHEMISTRY METHOD 04/22/2025 12:59 PM [facility] Calcium 9.0 8.5 - 10.5 mg/dL LAB CHEMISTRY METHOD 04/22/2025 12:59 PM [facility] AST (SGOT) 16 10 - 42 unit/L LAB CHEMISTRY METHOD 04/22/2025 12:59 PM [facility] ALT (SGPT) 30 10 - 60 unit/L LAB CHEMISTRY METHOD 04/22/2025 12:59 PM [facility] Alkaline Phosphatase 46 42 - 121 unit/L LAB CHEMISTRY METHOD 04/22/2025 12:59 PM [facility] Total Protein 7.1 6.0 - 8.0 g/dL LAB CHEMISTRY METHOD 04/22/2025 12:59 PM [facility] Albumin 3.9 3.2 - 5.0 g/dL LAB CHEMISTRY METHOD 04/22/2025 12:59 PM EDT [facility] Total Bilirubin 0.3 0.0 - 1.4 mg/dL LAB CHEMISTRY METHOD 04/22/2025 12:59 PM EDT [facility] Blood Venous blood specimen / Unknown Venipuncture / Unknown 04/22/2025 8:37 AM EDT 04/22/2025 8:37 AM EDT Shukri NELSON LAB BLOOD ORDERABLES Final Re sult Performing Organization Address City/[facility]/ZIP Co de Phone Number [facility] [address] [place] [address], [place] [phone] * External clinical lab (04/16/2025) Provider [facility] LAB BLOOD ORDERABLES Fin al Result * Hepatitis C antibody (12/06/2024 2:30 PM EDT) Hepatitis C Antibody Negative Negative LAB CHEMISTRY METHOD 12/06/2024 7:34 PM EDT [facility] Blood Venous blood specimen / Unknown Venipuncture / Unknown 12/06/2024 2:30 PM EDT 12/06/2024 2:30 PM EDT Luisa Man CNM LAB BLOOD ORDERABLES Final Re sult Performing Organization Address City/[facility]/ZIP Co de Phone Number [facility] [address] [place] [address], [place] [phone] * HIV 1,2 antibody, p24 antigen with reflex to differentiation (12/06/2024 2:30 PM EDT) HIV Combo AB/AG Negative Negative LAB CHEMISTRY METHOD 12/06/2024 7:34 PM EDT [facility] Blood Venous blood specimen / Unknown Venipuncture / Unknown 12/06/2024 2:30 PM EDT 12/06/2024 2:30 PM EDT Narrative [facility] ([facility]) [facility] - 12/06/2024 7:34 PM EDT This assay is a 4th generation assay allowing for earlier detection of HIV infection by detecting the presence of the HIV-1 p24 antigen as well as the traditional antibodies to HIV type 1 (including group O) and type 2. Use of a 4th generation assay is the current CDC recommendation for HIV screening. Luisa Man [facility] LAB BLOOD ORDERABLES Final Re sult [facility] ([facility] [address] [place] [address], [place] [phone] * (ABNORMAL) Lipid panel (07/26/2023) Pathologist [facility] LDL/HDL Ratio 3 0 - 4 Triglycerides 176(A) 0 - 150 mg/dL Cholesterol 191 0 - 200 mg/dL HDL 73 >=40 mg/dL LDL Cholesterol 83 0 - 100 mg/dL Blood Venous blood specimen / Unknown Historical Provider LAB BLOOD ORDERABLES Elise l Result * Cervical Cancer Screening: HPV (07/08/2023) Pathologist [facility] Cervical Cancer Screening: HPV no interpretation , abstracted Historical Provider HEALTH MAINTENANCE Final Result from Last 3 Months or Most Recently Relevant to Health Maintenance Insurance [employer] Care Teams Yacht Master Relationship Specialty Start Date End Date Bev Tang MD [address] [place] [id number] PCP - General Internal Medicine 12/06/24
--- OUTSIDE RECORDS SUMMARY | 2025-06-24 19:03 | XMS_ITS | Encounter Summary ---
Author Organization [facility] Address [address] [place] [address] Care Team Providers Care Talent Acquisition Administrator Name Role Phone Bev Tang MD Primary Care Provider Encounter Details Date Type Department Care Team ([facility] Contact Info) Description 05/15/2025 Results Follow-Up Adult Medicine - [place] [address] [place] [address] Shukri Prieto, OMAR [address] [place] [address] Social History Tobacco Use Types Packs/Day Years [...] for your loved ones. For example, child life specialist or elderly care for an older adult? [...] Time PHQ-9 Depression Total Score: 6 04/29/20 25 7:15 AM EDT documented as of this encounter Care Teams Talent Acquisition Administrator Relationship Specialty Start Date End Date Bev Tang MD [address] [place] [phone] PCP - General Internal Medicine 12/06/24 documented as of this encounter
--- OUTSIDE RECORDS SUMMARY | 2025-06-24 19:03 | XMS_ITS | Encounter Summary ---
Author Organization [facility] Address [address] [place] [phone] Phone Care Team Providers Care Game Operator Name Role Phone Pcp, Unknown Primary Care Provider Bev Pettit MD Primary Care Provider Encounter Details Date Type Department Care Team (Late st Contact Info) Description 08/30/2023 Procedure Pass [facility], Ct Scan - [address] [address] Social History Tobacco Use Types Packs/Day Years Used Date Smoking Tobacco: Never Education Answer Date Recorded Are you interested in more education? Not on wili e 08/30/2023 Are you concerned about learning? Not on file 08/30/2023 No 08/30/2023 No 08/30/2023 Digital Access Answer Date Recorded No 08/30/2023 No 08/30/2023 Reliable internet access at home? Not on file 08/30/2023 Device with a working camera? Not on file Intimate Partner Violence Answer Date R ecorded Are you denied basic needs s uch as food, clothing, or medical care? No 08/30/2023 In the past 12 months have y ou been in a relationship with a person who hurts, threatens, or tries to control you? No 08/30/2023 Are you denied basic needs s uch as food, clothing, or medical care? No 08/30/2023 In the past 12 months have y ou been in a relationship with a person who hurts, threatens, or tries to control you? No 08/30/2023 Comments Unknown Sex and Gender Information Value Date Recorded Sex Assigned at Female 04/16/2025 11:26 AM EDT Legal Sex Female 8:28 PM EDT Gender Identity Female 04/16/2025 11:26 AM EDT Sexual Orientation Straight 04/16/2025 11 :26 AM EDT documented as of this encounter Plan of Treatment Not on file documented as of this encounter Visit Diagnoses Not on filedocumented in this encounter Additional Health Concerns Infection Onset Date Last Indicated Resolved Time CoV-Risk 08/30/2023 08/30/2023 09/10/2023 1:23 AM EST documented as of this encounter Care Teams Game Operator Relationship Specialty Start Date End Date Pcp, Unknown PCP - General 08/30/23 04/15/25 Bev Tang MD [address] [place] [address] [email or web address] PCP - General Family Medicine 04/16/25 documented as of this encounter Additional Source Comments The information contained in this document represents components of the legal health record. It is not the complete legal health record.[facility]
--- OUTSIDE RECORDS SUMMARY | 2025-06-24 19:03 | XMS_ITS | Encounter Summary ---
Author Organization [facility] Address [address] [place] [phone] Phone Care Team Providers Care Phthalic Acid Purifier Name Role Phone Pcp, Unknown Primary Care Provider Bev Pettit MD Primary Care Provider Encounter Details Date Type Department Care Team (Late st Contact Info) Description 08/30/2023 Procedure Pass [facility], Ct Scan - [address] [address] Social History Tobacco Use Types Packs/Day Years [...] documented as of this encounter Care Teams Phthalic Acid Purifier Relationship Specialty Start Date End Date Pcp, Unknown PCP - General 08/30/23 04/15/25 Bev Tang MD [address] [place] [address] [email or web address] PCP - General Family Medicine 04/16/25 documented as of this encounter Additional Source Comments The information contained in this document represents components of the legal health record. It is not the complete legal health record.[facility]
--- OUTSIDE RECORDS SUMMARY | 2025-06-24 19:03 | XMS_ITS | Clinical Summary ---
Author Organization [facility] Address [address] [place] [address] Phone Care Team Providers Care Typing Secretary Name Role Phone Bev Tang MD Primary Care Provider Allergies No known active allergies Medications VIENVA 0.1-20 mg-mcg per tablet Take 1 tablet by mouth daily. Active sertraline (ZOLOFT) 50 MG tablet Take 0.5 tablets by mouth daily. 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 Found on ultrasound 09/19/2023 Anxiety 05/24/2018 LGSIL on Pap smear of cervix 03/02/2017 Overview (04/16/2025): Colpo- benign 04/2017 - repeat pap 201703/15/2018 - PAP collected Asthma 02/27/2014 Overview (04/16/2025): Exercise induced Encounters Date Type Department Care Team Description 04/16/2025 1:04 PM EDT - 04/16/2025 11:59 PM EDT Hospital Encounter [facility] [address] [place] [address] [place] [address] Discharge Disposition: Home or Self Care 04/16/2025 12:40 PM EDT Telemedicine [facility] [address] [place] [address] Sarah Quiñones, COLLISION ESTIMATOR Urinary tract infection without hematuria, site unspecified (Primary Dx) from Last 3 Months Social History Tobacco Use Types Packs/Day Years [...] Orientation Straight 04/16/2025 11 :26 AM EDT Last Filed Vital Signs Vital Sign Reading Time Taken Comments Blood Pressure 114/72 08/30/2023 1:32 PM EST Pulse 74 08/30/2023 1:32 PM EST Temperature 37.3 C (99.1 F) 08/30/2023 11:33 AM EST Respiratory Rate 16 08/30/2023 1:32 PM EST Oxygen Saturation 99% 08/30/2023 1:32 PM EST Inhaled Oxygen Concentration - - Weight 68 kg (150 lb) 08/30/2023 11:33 AM EST Height 172.7 cm (5' 8 ) 08/30/2023 11:33 AM EST Body Mass Index 22.81 08/30/2023 11:33 AM EST Plan of Treatment Not on file Medical Devices Not on file Procedures Procedure Name Priority Date/Time Associated Diagnosis Comments URINALYSIS WITH REFLEX TO URINE CULTURE Routine 04/16/2025 1:09 PM EDT Urinary tract infection without hematuria, site unspecified from Last 3 Months Results * (ABNORMAL) Urinalysis w/reflex Urine Culture (04/16/2025 1:09 PM EDT) COLOR Yellow Yellow [facility] CLARITY TURBID [facility] GLUCOSE Negative Negative [facility] BILI Negative Negative [facility] KETONES Trace(A) Negative [facility] SPECIFIC GRAVITY 1.025 1.005 - 1.030 [facility] BLOOD Negative Negative [facility] PH 6.0 5.0 - 8.0 [facility] Protein-UA Trace(A) Negative [facility] NITRITE Negative Negative [facility] Leukocyte esterase, ur Negative Negative [facility] Urine (Urine) 04/16/2025 1:0 9 PM EDT 04/16/2025 1:15 PM EDT us Sarah Quiñones COLLISION ESTIMATOR LAB URINE ORDERABLES Elise tucker Result Performing Organization Address City/State/[facility] Co de Phone Number [facility] [address] [place] [address] from Last 3 Months Insurance [employer] O [facility] E[facility] EPO [facility]PO [facility] Care Teams Typing Secretary Relationship Specialty Start Date End Date Bev Tang MD [address] [place] [phone] [email or web address] PCP - General Family Medicine 04/16/25 Additional Source Comments The information contained in this document represents components of the legal health record. It is not the complete legal health record.[facility]
[2025-06-24 20:07] VITALS: BP 142/84; PULSE 71; RESP 18; TEMP 36.6; O2SAT 99
--- NOTE | 2025-06-25 15:14 | MHC.CARE ---
RAD Team emailed completed [facility] and PHP referrals for this pt.
== END 2025-06-24 20:29 | disposition home or self-care (01) ==
PROVIDERS: Physician Assistant; Emergency Provider Emergency Medicine; PCP Physician Assistant
DX: F33.1 Major depressive disorder, recurrent, moderate (principal); R45.851 Suicidal ideations; R10.23 Pelvic and perineal pain bilateral; F41.9 Anxiety disorder, unspecified; Z79.899 Other long term (current) drug therapy; Z51.81 Encounter for therapeutic drug level monitoring
CPT/HCPCS: 36415; 80053; 80307; 81001; 81003; 84702; 85025; 99284; S9485